=== PATIENT | female | born 1970 | race Caucasian/White ===

== ENCOUNTER 2021-01-08 10:18 | Observation (INO) | payer BC, OTHER ==
--- NOTE | 2021-01-07 14:51 | PREOP HP ---
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 She says her right leg feels weak. The problem started more than one year ago. It became worse in June after she contracted COVID. She feels as though the problem is slowly worsening. She says that her pain is a constant 4/10, but it can reach 10/10. Standing, walking or sitting for too long increases her pain. Lying down helps her. She takes hydrocodone, diclofenac, Flexeril and Cymbalta. She has had three epidural steroid injections, which helped her temporarily. She saw a chiropractor last January and February, which gave her temporary relief. She has also undergone physical therapy in July and August of this year without benefit. PAST MEDICAL HISTORY: Cervical injury, COVID-19. CURRENT MEDICATIONS: Cymbalta, Flexeril, diclofenac, [place]. PAST SURGICAL HISTORY: Laparoscopic cholecystectomy, tubal ligation. FAMILY HISTORY: Cancer, diabetes, heart disease, hypertension, [place]. SOCIAL HISTORY: Registered nurse. . Smokes half a pack of cigarettes per day for 30 years. Drinks alcohol 1-2 times per week. ALLERGIES: No known drug allergies. REVIEW OF SYSTEMS: A 12-point review of systems was performed and is noncontributory except that mentioned above. PHYSICAL EXAMINATION: GENERAL: Alert, pleasant, in no acute distress. HEENT: Normocephalic, atraumatic. SKIN: Warm and dry. MUSCULOSKELETAL: Lumbar paraspinal muscle bulk is normal, restricted range of motion of the lumbar spine, [id number] tenderness of the lower lumbar spine on palpation, normal range of motion of the lower extremities bilaterally. EXTREMITIES: No clubbing, cyanosis or edema. NEUROLOGIC: Alert and oriented x 3. Strength is 5/5 in the lower extremities bilaterally. Sensory was intact to light touch in the lower extremities bilaterally except for diffuse decrease in sensation involving her right foot, reflexes were present and symmetric in the lower extremities, positive straight leg raising on the right with posterior thigh pain, negative straight leg raising on the left, normal gait. IMAGING: I reviewed a lumbar MRI scan from 06/17/2020. On that study, the primary problem is at L4-L5 where there is diffuse disk bulging combined with thickening of the ligamentum flavum and facet hypertrophy. There is lateral recess narrowing on the right. ASSESSMENT AND PLAN: The patient has a lumbar radiculopathy on the right. She has failed to improve with a considerable amount of conservative measures including epidural steroid injections and physical therapy. At this point, I feel as worthwhile to consider lumbar microsurgery. I did speak with her about the surgery and the risks. I explained the technique of the operation to decompress the nerve root. She understands. She would like to proceed. ELSA DR: Salma TID: [id number] CARROL
[~2021-01-08] VITALS: Ht 170.2 cm; Wt 106.7 kg
[~2021-01-08 10:18] MED LIST: CYCL10TA2 PO; DEXAMETHASONE SOD PHOS 4 MG/ML VIAL ONE; DICL75TA PO; DULO60CA6 PO; HYDR-2759 PO; HYDROmorphone 2 MG/ML VIAL IVP PRN; LIDOCAINE 2% PF 5 ML VIAL. ONE; MORPHINE SULFATE 2 MG/ML INJ. IVP PRN; ONDANSETRON PF 4 MG/2 ML VIAL. ONE; PROCHLORPERAZINE 10 MG/2 ML VIAL. IVP PRN; PROPOFOL 10 MG/ML (20ML) VIAL. IV ONE; PROPOFOL 50 ML IV ONE; REMIFENTANIL 2 MG VIAL. IV ONE; fentaNYL PF VIAL 100 MCG/2 ML VIAL IVP PRN
[2021-01-08] MEDS ORDERED: KETOROLAC 60 MG/2 ML VIAL. ONE (10:27)
[2021-01-08] MEDS ORDERED: GELATIN SPONGE SIZE 100. ONE (10:27)
[2021-01-08] MEDS ORDERED: THROMBIN TOPICAL 20,000 UNIT SPRAY.SYRN KIT TP ONE (10:27)
[2021-01-08] MEDS ORDERED: BUPIVACAINE-EPI 0.5%-1:200000 MPF 30 ML VIAL. ONE (10:27)
[2021-01-08 10:52] VITALS: BP 125/64
[2021-01-08] MEDS: IV RINGERS,LACTATED 1000ML 1,000 ML IV SCH ×2 (11:06→14:22)
[2021-01-08] MEDS ORDERED: fentaNYL PF VIAL 100 MCG/2 ML VIAL ONE (11:51)
[2021-01-08] MEDS ORDERED: DESFLURANE > 120 MINUTES IH ONE (12:37)
[2021-01-08] MEDS ORDERED: ePHEDrine PF IN SALINE 50 MG/10 ML SYRINGE. IV ONE (12:58)
[2021-01-08] MEDS ORDERED: GLYCOPYRROLATE 1 MG/5 ML VIAL. ONE (13:04)
[2021-01-08] MEDS ORDERED: NEOSTIGMINE METHYLSULFATE 5 MG/5 ML SYRINGE. ONE (14:04)
[2021-01-08] MEDS ORDERED: CALCIUM CARBONATE 500 MG TAB.CHEW PO PRN (14:15)
[2021-01-08] MEDS ORDERED: MAGNESIUM HYDROXIDE 2,400 MG/30 ML ORAL.SUSP. PO PRN (14:15)
[2021-01-08] MEDS ORDERED: 0.9 % SODIUM CHLORIDE 10 ML DISP.SYRIN. IV PRN (14:15)
[2021-01-08] MEDS ORDERED: diphenhydrAMINE HCL 25 MG CAPSULE PO PRN (14:15)
[2021-01-08] MEDS ORDERED: MAG HYDROX/ALUMINUM HYD/SIMETH 30 ML ORAL.SUSP PO PRN (14:15)
[2021-01-08] MEDS ORDERED: NALOXONE 0.4 MG/ML VIAL. IV PRN (14:15)
[2021-01-08] MEDS ORDERED: HYDROcodone/APAP 5/325MG 1 TAB TABLET PO PRN (14:15)
[2021-01-08] MEDS ORDERED: fentaNYL PF VIAL 100 MCG/2 ML VIAL IVP PRN (14:15)
[2021-01-08] MEDS ORDERED: ACETAMINOPHEN 325 MG TABLET. PO PRN (14:15)
[2021-01-08] MEDS: POTASSIUM CL 20MEQ D5-0.45NACL 1,000 ML IV SCH (14:30)
[2021-01-08] MEDS ORDERED: CYCLOBENZAPRINE 10 MG TABLET. PO PRN (14:30)
[2021-01-08 15:49] VITALS: BP 113/65
[2021-01-08] MEDS: DICLOFENAC SODIUM 25 MG TABLET.DR PO SCH (17:15)
--- NOTE | 2021-01-08 18:27 | OP ---
DATE OF SURGERY: 01/08/2021 PREOPERATIVE DIAGNOSES: Lateral recess stenosis and lumbar radiculopathy, L4-L5, right. POSTOPERATIVE DIAGNOSES: Lateral recess stenosis and lumbar radiculopathy, L4-L5, right. OPERATION PERFORMED: Hemilaminotomy and microdecompression L4-L5 right. The operation was done with EMG monitoring, SSEP monitoring, fluoroscopy, microscopic dissection. SPECIMEN: Decompression. SURGEON: Romaine Wall M.D. METAL MOVER: JUAN Boone assisted with the surgery. She assisted with exposure, decompression of the root as well as the closure. OPERATIVE INDICATIONS: The patient is a pleasant 50-year-old woman who developed intractable back and right leg pain. On imaging studies, she did have disc bulging on the left side and lateral recess narrowing on the right and I felt that at this point, after failing considerable conservative measures and having such severe pain, it was my recommendation to offer decompression and decompress the root at this level to see if we could have her gain some relief. I discussed the surgery and the risk. I spoke about the possibility she may not be helped by the surgery. She did have some disease at L5-S1, but I did not think it was significant enough to cause this level of pain. She understood the surgery, the risks, the technique and she wished to go ahead. DESCRIPTION OF PROCEDURE: Under general endotracheal anesthesia, the patient was positioned prone on the Aleks table. Lumbar region prepped and draped in standard fashion. JACLYN hose and A-V Impulse boots were applied for DVT prophylaxis. The microscope was draped, fluoroscopy was draped and brought into field. Monitoring was established. Ancef 2 grams was given less than one hour prior to initiation of surgery. Using fluoroscopic guidance, a midline incision was made directly over the L4-L5 interspace. I dissected down through the skin and subcutaneous tissue. I incised the lumbodorsal fascia and reflected the paraspinal muscles, placed a [place] microdisk retractor. I brought in the microscope and the remainder of surgery done with the microscope using microscopic technique. I burred down a very generous hemilaminotomy and then I grasped and peeled away the ligamentum flavum from medial to lateral. I performed a partial foraminotomy and then worked down visualizing the dura. At first, I had some difficulty finding the L5 root. After working through a number of tethering epidural veins and some fat, I was able to visualize the root, which was held down by a web of blood vessels and rolled back. I freed the vessels and the nerve became more mobile. There was some pressure from the overlying bone at the entrance to the foramen, but the disc itself was firm and no discectomy was warranted. As I worked and peeled away the venous structures, which were tethering the nerve, it moved into the normal position. Moving posteriorly, much better able to be visualized. I irrigated copiously and I explored carefully, there were no disc fragments, the root was very free at this point. I obtained excellent hemostasis. I then irrigated with antibiotic solution. Then, I continued my irrigation and closed the wound in layers with absorbable suture after I removed the retractors and obtained excellent hemostasis. The subcutaneous tissue was closed separately. The skin was closed with 4-0 subcuticular stitch. The surgery went very well. SHARON DR: Sharda TID: [id number] CARROL
[2021-01-08 19:00] VITALS: BP 135/66
[2021-01-08] MEDS: DOCUSATE SODIUM 100 MG CAPSULE. PO SCH (20:17)
[2021-01-08] MEDS: HYDROcodone/APAP 5/325MG 1 TAB TABLET PO PRN (20:18)
[2021-01-08 23:00] VITALS: BP 105/55
[2021-01-09 03:00] VITALS: BP 93/46
[2021-01-09] MEDS: POTASSIUM CL 20MEQ D5-0.45NACL 1,000 ML IV SCH (03:15)
[2021-01-09] MEDS: HYDROcodone/APAP 5/325MG 1 TAB TABLET PO PRN (05:57)
[2021-01-09 07:00] VITALS: BP 105/53
[2021-01-09] MEDS ORDERED: DULoxetine HCL 30 MG CAPSULE.DR PO SCH (09:00)
[2021-01-09] MEDS ORDERED: DOCU-153 PO (09:31)
--- NOTE | 2021-01-09 09:37 | DISCH ---
DISCHARGE INSTRUCTIONS Condition on Discharge Condition on Discharge: Stable Activity After Discharge Activity Instructions for Disc: Activity as tolerated, Avoid exertion Other activity instructions: no driving for a week Bathing Instructions: Shower-keep dressing dry Lifting Instructions after Dis: No heavy lifting, No pulling or pushing, Do not lift >10 pounds Diet after Discharge Additional Diet Restrictions: resume home diet Wound Incision Care Wound/Incision Care: Ice to area for comfort Other wound/incision instructi: May remove dressing in 48 hours if dry then may shower, no soaking Contacting the after DC Call your doctor for: Concerns you may have Follow-Up Follow up with: Dr. Nielsen's nurse in 2 weeks [phone] MUSA NIELSEN MD Jan 09, 2021 09:37
[2021-01-09] MEDS: DOCUSATE SODIUM 100 MG CAPSULE. PO SCH (09:44)
[2021-01-09] MEDS: DICLOFENAC SODIUM 25 MG TABLET.DR PO SCH (09:44)
[2021-01-09 11:00] VITALS: BP 87/51
--- NOTE | 2021-01-09 13:18 | NUR ---
pt is discharged home with self care at 1203 via ambulation via this RN. pt is in stable condition. pt has all belongings with her. pt received discharge instructions and prescriptions and was informed of prescriptions being sent to her pharmacy and stated she had no further questions for me. supplies for dressing changes was sent home with her and demonstrated to how to change her dressing if needed.
== END 2021-01-09 12:03 | disposition home or self-care (01) ==
LOC: SURG 10:18 → 4 NORTH 14:10
PROVIDERS: ADMIT Neurological Surgery; ATTEND Neurological Surgery
DX: M54.16 Radiculopathy, lumbar region (principal); M48.061 Spinal stenosis, lumbar region without neurogenic claudication; F17.210 Nicotine dependence, cigarettes, uncomplicated; Z90.49 Acquired absence of other specified parts of digestive tract; Z98.51 Tubal ligation status
CPT/HCPCS: 63047; 63048; 97116; 97162; 97530; A4213; A4364; A4556; A4930; A6254; A6258; G0378; G0379; J0690; J1100; J1885; J2405; J2704; J2710; J3010; J3490; 76000; A4222; A4223